=== PATIENT | female | born 1955 | race Caucasian/White ===

== ENCOUNTER → 2018-03-22 | Outpatient (CLI) | payer OTHER ==
[~2018-03-22] MED LIST: ALEVE220 MG PO; AMBIEN 5 MG TABL5 M1 PO; COLACE100 MG PO; METAMUCIL1 EAC1 PO; NORCO 5-325 TA1 EAC1 PO; PERCOCET PO; PROTONIX 20 MG20 MG PO; TYLENOL EXTRA500 MG PO; XARELTO10 M1 PO
--- NOTE | 2018-03-22 08:03 | NUR ---
ARRIVED AMBULATORY. MADE SELF IN COMFORTABLE. PT HERE FOR 2 UNITS PRBC'S D/T ANEMIA. VITALS OBTAINED AND 20 GAUGE IV STARTED IN PT'S RIGHT ANTECUBITAL. TOLERATED BOTH UNITS OF PRBC'S. DISCHARGE INSTRUCTIONS GIVEN. PT VERBALIZED UNDERSTANDING. 20 GAUGE RIGHT ANTECUBITAL REMOVED IN ITS ENTIRETY. DENIES QUESTIONS OR NEEDS AT DISCHARGE.
[2018-03-22 08:41] VITALS: BP 143/78
[2018-03-22 08:50] VITALS: BP 118/63; BP 123/65; BP 131/76
[2018-03-22 10:51] VITALS: BP 131/76; BP 133/72; BP 137/76; BP 139/69; BP 140/83
== END ==
LOC: M.INFUS 06:40
DX: D64.9 Anemia, unspecified (principal)

== ENCOUNTER → 2018-06-14 | Outpatient (CLI) | payer OTHER ==
--- NOTE | 2018-06-20 16:30 | EKG ---
[place] [address] ELECTROCARDIOGRAM REPORT Name: MISA ADAM Room: [facility]#: [id number] Admission: 06/14/18 Attend Phys: Matt Solomon II Discharge: Date of : 59 Report #: [id number] THIS REPORT FOR: //name// [facility] Test Date: 2018-06-20 Test Time: 09:35:54 Pat Name: MISA ADAM Department: Room: Gender: F Equipment Planner: : 1955 Requested By: Matt Solomon Order Number: [id number] RIOS: Giorgi Sullivan Measurements Intervals [place] Rate: 72 P: 21 AK: 193 QRS: 14 QRSD: 88 T: 28 QT: 362 QTc: 397 Interpretive Statements Sinus rhythm Low voltage, precordial leads No previous ECG available for comparison Electronically Signed On 06-20-2018 16:30:02 CDT by Giorgi Sullivan [email or web address] <ELECTRONICALLY SIGNED> By: Giorgi Sullivan MD, [facility] 06/20/18 1630 0935 [id number] Giorgi Sullivan MD, FACC /EPI
== END ==
LOC: M.MRI 06-11 14:30
DX: S83.281A Other tear of lateral meniscus, current injury, right knee, initial encounter (principal); M17.11 Unilateral primary osteoarthritis, right knee; M25.461 Effusion, right knee; M71.21 Synovial cyst of popliteal space [Baker], right knee; M25.761 Osteophyte, right knee; X58.XXXA Exposure to other specified factors, initial encounter; Y93.89 Activity, other specified; Y92.89 Other specified places as the place of occurrence of the external cause; Y99.8 Other external cause status

== ENCOUNTER 2018-07-02 06:15 | Inpatient (IN) | payer OTHER ==
[2018-06-20 09:48] LABS: ALBUMIN 3.5 g/dL (3.4-5.0); CREATININE 1.1 mg/dL (0.6-1.3); POTASSIUM 4.2 mmol/L (3.5-5.1); TOTAL BILIRUBIN 0.2 mg/dL (<0.1-1.0); TOTAL PROTEIN 6.5 g/dL (6.4-8.2)
[2018-06-20 10:15] LABS: URINE BILIRUBIN NEGATIVE (Negative); URINE BLOOD NEGATIVE (Negative); URINE CLARITY CLEAR; URINE COLOR YELLOW; URINE GLUCOSE-RANDOM NEGATIVE (Negative); URINE KETONES TRACE (Negative); URINE LEUKOCYTES-REFLEX NEGATIVE (Negative); URINE NITRITE-REFLEX NEGATIVE (Negative); URINE PROTEIN NEGATIVE (Negative); URINE SPECIFIC GRAVITY 1.025 (1.005-1.030); URINE UROBILINOGEN 0.2 E.U./dl (0.2-1.0)
[2018-06-20 10:20] LABS: HEMATOCRIT 34.5 % (37.0-47.0); MCH 26.6 pg (26.0-34.0); MCHC 31.9 g/dL (28.0-37.0); MCV 83.4 fL (80.0-100.0); MPV 8.8 fl. (7.2-11.1); RBC 4.14 mil/uL (4.20-5.00); WBC 5.7 thou/uL (4.0-11.0)
[2018-06-20 10:23] LABS: PROTIME 9.9 Seconds (9.20-11.50)
[~2018-07-02] VITALS: Ht 165.1 cm; Wt 83.9 kg
[~2018-07-02 06:15] MED LIST changes: -COLACE100 MG PO; -METAMUCIL1 EAC1 PO; -PERCOCET PO; -XARELTO10 M1 PO
[2018-07-02 11:12] VITALS: BP 133/76
--- NOTE | 2018-07-02 15:53 | NUR ---
PT BROUGHT TO FLOOR AT 1530. PT IS ALERT AND ORIENTED. PT IS ON 4 LITERS O2 BY NASAL CANNULA WITH CONTINOUS PULSE OX. PT HAS CLEAR BUT DIMINISHED LUNG SOUNDS. PULSES 2+. SENSATION TO RIGHT LEG INTACT. PT HAD A RIGHT TKA. INCISION COVERED WITH XEROFORM, MEPILEX, AND ROCIO BANDAGE. PT HAS A RT AC WITH 1/2 NS AT 75ML.HR. PT DENIES ANY NAUSEA AT THIS TIME. PT ATE PUDDING WITH OXYCODONE. POLAR PACK IN PLACE. CPM ORDERED. FOOR SCD IN PLACE. MARCOS HOSE ON LEFT LEG. PT/OT/RT ORDERED. CALL LIGHT IN REACH. BED ALARM ON. WILL CONTINUE TO MONITOR.
[2018-07-02 15:57] VITALS: BP 145/65
--- NOTE | 2018-07-02 17:01 | NUR ---
RECIEVED O.T. EVAL ORDERS. WILL DEFER TO P.T. AT THIS TIME. PLEASE ORDER FURTHER O.T. SERVICES AT THIS TIME.
--- NOTE | 2018-07-02 18:02 | NUR ---
PATIENT REFUSING LAB DRAWS DUE TO POOR VEINS AND LAB STICKS X2 WITH NO SUCCESS. SPOKE WITH DR. RM AND ASKED IF WE COULD PLEASE DRAW ALL LABS IN THE AM, AND ATTEMPT TO PULL BLOOD FROM RIGHT AC IV. DR. RM IS OK WITH THIS PLAN. INFORMED DR. RM WE WOULD WAIT UNTIL ALL IV MEDS WERE COMPLETE TOMORROW BEFORE ATTEMPTING LAB DRAW IN CASE WE LOSE PERIPHERAL IV DURING LAB DRAW.
--- NOTE | 2018-07-02 18:17 | NUR ---
PT REMAINED ALERT AND ORIENTED THIS SHIFT. PT IS ON 4 LITERS O2 BY NASAL CANNULA. RT NOTIFIED. CONTINUOUS PULSE OX IN PLACE, SPO2 93%. OT C.O PAIN THIS SHIFT OF 05/24 WITH PARTIAL RELIEF FROM OXY IR, HYDROCODONE GIVEN FOR BREAKTHROUGH PAIN. PT HAS VOIDED THIS SHIFT. CALL LIGHT IN REACH. BED ALARM ON. WILL COTNINUE TO MONITOR.
--- NOTE | 2018-07-02 18:36 | NUR ---
NURSING DOCUMENTATION BY LASHONDA Mendosa RN REVIEWED
[2018-07-02 20:40] VITALS: BP 147/74
[2018-07-03] VITALS: BP 117/74
[2018-07-03 04:00] VITALS: BP 122/53
--- NOTE | 2018-07-03 06:24 | NUR ---
PATIENT HAS SLEPT WELL THROUGHOUT THE NIGHT. VSS ON 4L 02 VIA NASAL CANNULA. PAIN WELL CONTROLLED WITH ORAL PAIN MEDICATION AND CHARTED. DRESSING TO RIGHT KNEE IS C/D/I, MARCOS WOODSE, POLAR CARE AND SCD'S IN PLACE. PATIENT TOLERATING CPM WELL. IV IN RIGHT AC-SL. IV ABT GIVEN WITHOUT ANY ADVERSE SIDE EFFECTS NOTED. PATIENT INSTRUCTED TO USE CALL LIGHT WHEN NEEDING ASSISTANCE. FALL PRECAUTIONS IN PLACE AND HOURLY ROUNDS MADE. WILL CONTINUE WITH PLAN OF CARE AND NURSING TO MONITOR.
[2018-07-03 07:52] VITALS: BP 112/67
[2018-07-03 12:02] LABS: HEMATOCRIT 31.8 % (37.0-47.0); HEMOGLOBIN 10.5 gm/dL (12.0-15.0)
--- NOTE | 2018-07-03 12:11 | NUR ---
SPOKE WITH DR. SALDANA ABOUT PATIENT NOT WANTING TO GET GET LABS DRAWN. INFORMED DR. SALDANA WE WOULD ATTEMPT TO DRAW FROM PERIPHERAL LINE PER DR. RM ONCE ANTIBIOTIC WAS COMPLETE. DR. SALDANA STATED LABS COULD BE CANCELLED IF UNABLE TO OBTAIN BLOOD FROM PERIPHERAL.
--- NOTE | 2018-07-03 12:14 | NUR ---
LAB ABLE TO RUN HH OFF OF PERIPHERAL DRAW. BLOOD HEMOLYZED SO UNABLE TO DO TYPE AND SCREEN. TYPE AND SCREEN CANCELLED PER DR. SALDANA.
[2018-07-03] MEDS ORDERED: PERCOCET PO (14:15)
[2018-07-03] MEDS ORDERED: XARELTO10 M1 PO (14:17)
[2018-07-03] MEDS ORDERED: COLACE100 MG PO (14:20)
[2018-07-03] MEDS ORDERED: METAMUCIL1 EAC1 PO (14:27)
[2018-07-03 14:30] VITALS: BP 112/67
--- NOTE | 2018-07-03 15:15 | NUR ---
UP IN CHAIR. SHE IS READY TO GO HOME TODAY. AT BEDSIDE. PT.SAID HE WILL BE ABLE TO HELP HER AT DISCHARGE. SHE HAS A FRONT WHEEL WALKER HERE IN ROOM THAT IS HERS. DISCUSSED CPM AND POLAR PACK. SHE CHOSE [facility] FOR PT IF THEY TAKE HER INSURANCE. FAXED FACE SHEET TO [facility]. THEY WILL RUN HER INSURANCE AND MAKE SURE THEY ACCEPT IT. CALLED IN PRESCRIPTION WRITTEN TO PT.'S PHARMACY . COPAY IS $57. INFORMED HER AND SHE SAID THAT WAS ALRIGHT.
[2018-07-03 16:00] VITALS: BP 112/67
--- NOTE | 2018-07-03 18:01 | NUR ---
PT ALERT AND ORIENTED X 4. DENIES NAUSEA AND INDICATED PAIN 5/10. PT RECEIVED PO MEDS FOR PAIN RELIEF DURING SHIFT. DRESSING INTACT. POLAR PACK IN USE. IV PATENT. VS STABLE. OXYGEN @ 96% ON RA. HOURLY ROUNDS MAINTAINED. WILL USE CALL LIGHT FOR ASSISTANCE. CALL LIGHT WITHIN REACH. HEMOVAC DRAIN REMOVED AT 1330. PT UP WITH THERAPY IN MORNING AND AFTERNOON. IV REMOVED. DISCHARGE INSTRUCTIONS AND PRESCRIPTIONS GIVEN. PT LEFT UNIT PER W/C WITH PERSONAL BELONGINGS. PT LEFT @ 1600 WITH SIGNIFICANT OTHER PER PRIVATE CAR.
--- NOTE | 2018-07-03 18:47 | NUR ---
NURSING DOCUMENTATION BY MICHELLE ARDON RN REVIEWED
--- NOTE | 2018-07-16 10:42 | OP ---
[facility] [address] [place] [address] OPERATIVE REPORT Name: MISA ADAM Room: [address] IN M.R.#: [id number] Admission: 07/02/18 Attend Phys: Catalina Valdez Discharge: 07/03/18 Date of : 59 Report #: [id number] THIS REPORT FOR: //name// CC: Deja Zamora DATE OF SERVICE: 07/02/2018 PREOPERATIVE DIAGNOSIS: Right knee osteoarthritis. POSTOPERATIVE DIAGNOSIS: Right knee osteoarthritis. PROCEDURE: Right total knee arthroplasty. SURGEON: Matt Solomon II, DO AUTOMATED LOGISTICS SPECIALIST: MER Giron ANESTHESIA: General endotracheal with adductor canal block. ESTIMATED BLOOD LOSS: 50 mL. ANTIBIOTICS: Ancef preoperatively. DRAINS: Medium Hemovac. COMPLICATIONS: None. CONDITION: Stable to recovery room. IMPLANTS: Listed in the operative record and progress note. BRIEF HISTORY: The patient seen in the preoperative area. Preoperative H and P was performed. Site was marked, questions were answered. Risks and benefits were discussed with the patient in detail about surgery. The patient wished to proceed assuming all risks. DESCRIPTION OF PROCEDURE: The patient was taken to the operative suite and placed supine on the OR table and given appropriate anesthesia. A well-padded tourniquet was applied to the upper thigh, which was inflated to 300 mmHg after gravity exsanguination. The operative knee was sterilely prepped and draped. Surgery began by a midline incision, was carried down to the subcutaneous tissues. A medial parapatellar arthrotomy was performed and carried down to the bone. The patella was everted and the excess soft tissue removed from around the femur. Femoral cutting block was then applied, checked with a drop gila for [address] [address] OPERATIVE REPORT Name: MISA ADAM Room: [address]#: [id number] Admission: 07/02/18 Attend Phys: Catalina Valdez Discharge: 07/03/18 Date of : 59 Report #: [id number] rotational alignment, pinned in appropriate position and appropriate cuts were made. A 4-in-1 cutting block was then applied, checked for rotational alignment, pinned in appropriate position and appropriate cuts were made. The tibia was exposed, excess meniscus was removed. Retractor was placed along the collateral ligaments. Tibial cutting block was applied, pinned in appropriate position, checked with a drop gila for rotational alignment and slope and appropriate cuts were made. Tibial bone was removed. The tibial base plate was then applied, checked for rotational alignment with a drop gila and pinned in appropriate position. Femur was then applied. The box cut was reamed. This was then trialed with appropriate spacer and showed excellent flexion and extension and excellent fit and fill of the knee with excellent stability throughout all range of motion. The patella was then reamed in appropriate fashion and sized to appropriate size. Three peg holes were drilled and showed excellent flexion, extension and excellent tracking of the patella within the groove. These trials were then removed. The tibia was punched in appropriate fashion. Bone ends were cleansed with Pulsavac irrigation and cement was mixed and applied to the final implants. These were then malleted into position and held the knee in extension and compressed to allow the cement to cure. After it cured, excess was removed utilizing a [place] and osteotome. It was then copiously irrigated and the final spacer was then malleted in position. Tourniquet was deflated. Hemostasis was obtained with electrocautery. Then, a cocktail was injected. PRP gel was sprayed throughout the internal aspects of the knee. Hemovac drain was applied. The capsule was closed with #2 FiberWire and 1 Vicryl in [id number] fashion. Skin was closed with 2-0 Vicryl and running 3-0 Monocryl. Dermabond and sterile dressing applied. James wrap and PolarCare applied. The patient transported to recovery room in stable condition. Counts were correct throughout the procedure. <ELECTRONICALLY SIGNED> By: Matt Solomon II, DO 07/16/18 1042 1654 [id number] Solomon II, DO /nt
== END 2018-07-03 16:00 | disposition home health service (06) | DRG 470 ==
LOC: M.PRE 06:15 → M.ORTHSURG 10:12 → M.TBA 10:12 → M.PRE 12:41 → M.ORTHSURG 15:17
PROVIDERS: Orthopaedic Surgery; ADMIT Internal Medicine
PROC: 0SRC0J9 Replacement of Right Knee Joint with Synthetic Substitute, Cemented, Open Approach (ICD-10-PCS; principal; 2018-07-03)
DX: M17.11 Unilateral primary osteoarthritis, right knee (principal); K21.9 Gastro-esophageal reflux disease without esophagitis; Z79.899 Other long term (current) drug therapy